=== PATIENT | female | born 1965 | race Caucasian/White ===

== ENCOUNTER 2017-02-06 16:16 | Emergency (ER) | payer OTHER ==
[2017-02-06 17:03] VITALS: BP 107/74
--- NOTE | 2017-02-06 19:20 | UC ---
Respiratory Complaint HPI - HPI Summary HPI Summary: Pt c/o URI like symptoms, cough, "burning chest" X 1 week. - History of Current Complaint Chief Complaint: UCRespiratory Stated Complaint: SORE THROAT/CHEST CONGESTION Time Seen by Provider: 02/06/17 18:23 Hx Obtained From: Patient ?: No Onset/Duration: Gradual Onset, Lasting Weeks - 1, Still Present Severity Initially: Mild Severity Currently: Mild Pain Intensity: 8 Pain Scale Used: 0-10 Numeric Character: Cough: Nonproductive Aggravating Factors: Deep Breaths, Recumbent Position Alleviating Factors: Nothing Associated Signs And Symptoms: Positive: Wheezing, URI - Risk Factors Pulmonary Embolism Risk Factors: Negative Cardiac Risk Factors: Negative Pseudomonas Risk Factors: Negative Tuberculosis Risk Factors: Negative - Allergies/Home Medications Allergies/Adverse Reactions: Allergies Allergy/AdvReac Type Severity Reaction Status Date / Time Latex Allergy Severe Rash Verified 02/06/17 17:03 Hydrocodone [From Vicodin] Allergy Intermediate Itching Verified 02/06/17 17:03 PMH/Surg Hx/FS Hx/Imm Hx Previously Healthy: Yes - Surgical History Surgical History: Yes Surgery Procedure, Year, and Place: L shoulder RC - Family History Known Family History: Positive: Cardiac Disease - Social History Occupation: Employed Full-time Lives: With Family Alcohol Use: Occasionally Substance Use Type: None Smoking Status (MU): Current Every Day Smoker Amount Used/How Often: ~ 1/2 ppd Length of Time of Smoking/Using Tobacco: started ~ age 20 Have You Smoked in the Last Year: Yes - Immunization History Most Recent Influenza Vaccination: this season [id number] Hx Tetanus, Diphtheria Vaccination: Yes Review of Systems Constitutional: Chills, Fatigue Skin: Negative Eyes: Negative ENT: Other - nasal congestion, PND Respiratory: Cough Cardiovascular: Negative Gastrointestinal: Negative Genitourinary: Negative Motor: Negative Neurovascular: Negative Musculoskeletal: Negative Neurological: Negative Psychological: Negative Is Patient Immunocompromised?: No All Other Systems Reviewed And Are Negative: Yes Physical Exam Triage Information Reviewed: Yes Appearance: Ill-Appearing Vital Signs: Initial Vital Signs Temp 99.6 F 02/06/17 16:59 Pulse 70 02/06/17 16:59 Resp 16 02/06/17 16:59 BP 107/74 02/06/17 16:59 Pulse Ox 100 02/06/17 16:59 Vital Signs Reviewed: Yes Eye Exam: Normal ENT Exam: Other ENT: Positive: Nasal congestion, Other: - PND Neck exam: Normal Respiratory Exam: Normal Respiratory: Positive: Rhonchi Cardiovascular Exam: Normal Musculoskeletal Exam: Normal Neurological Exam: Normal Psychological Exam: Normal Skin Exam: Normal UC Diagnostic Evaluation - Laboratory O2 Sat by Pulse Oximetry: 100 Respiratory Course/Dx - Differential Dx/Diagnosis Differential Diagnosis/HQI/PQRI: Sinusitis, Other - URI Provider Diagnoses: Bronchitis Discharge - Discharge Plan Condition: Stable Disposition: HOME Prescriptions: Amoxicillin PO (*) [Amoxicillin 500 MG CAP*] 500 mg PO Q12H #20 cap Benzonatate CAP* [Tessalon 100 MG CAP*] 100 mg PO TID PRN #21 cap PRN Reason: Cough Patient Education Materials: Acute Bronchitis (ED) Referrals: PARTHA Majano [Primary Care Provider] - If Needed
== END 2017-02-06 18:37 | disposition home or self-care (01) ==
LOC: UCCORT 16:16
DX: J40 Bronchitis, not specified as acute or chronic (principal); Z88.6 Allergy status to analgesic agent; Z91.040 Latex allergy status; Z72.0 Tobacco use
CPT/HCPCS: 99212; G0463

== ENCOUNTER 2017-04-14 12:53 | Emergency (ER) | payer OTHER ==
[2017-04-14 13:10] VITALS: BP 127/83
--- NOTE | 2017-04-14 14:12 | UC ---
Respiratory Complaint HPI - HPI Summary HPI Summary: c/o cough, nasal congestion, sinus pressure, malaise productive cough and sore throat X 6 days. - History of Current Complaint Chief Complaint: UCRespiratory Stated Complaint: COUGH,CONGESTION Time Seen by Provider: 04/14/17 13:36 Hx Obtained From: Patient ?: No Onset/Duration: Sudden Onset, Lasting Days - 6, Still Present, Worse Since - onset Timing: Constant Severity Initially: Mild Severity Currently: Moderate Pain Intensity: 7 Pain Scale Used: 0-10 Numeric Character: Cough: Productive - white Aggravating Factors: Exertion, Deep Breaths, Recumbent Position Alleviating Factors: Nothing Associated Signs And Symptoms: Positive: URI, Nasal Congestion, Sinus Discomfort - Risk Factors Pulmonary Embolism Risk Factors: Smoking Cardiac Risk Factors: Smoking Pseudomonas Risk Factors: Negative Tuberculosis Risk Factors: Smoking - Allergies/Home Medications Allergies/Adverse Reactions: Allergies Allergy/AdvReac Type Severity Reaction Status Date / Time Latex Allergy Severe Rash Verified 04/14/17 13:04 Hydrocodone [From Vicodin] Allergy Intermediate Itching Verified 04/14/17 13:04 PMH/Surg Hx/FS Hx/Imm Hx Previously Healthy: Yes - Surgical History Surgical History: Yes Surgery Procedure, Year, and Place: L shoulder RC - Family History Known Family History: Positive: Cardiac Disease - Social History Occupation: Employed Full-time Lives: With Family Alcohol Use: Occasionally Substance Use Type: None Smoking Status (MU): Light Every Day Tobacco Smoker Amount Used/How Often: ~ 1/2 ppd Length of Time of Smoking/Using Tobacco: started ~ age 20 Have You Smoked in the Last Year: Yes - Immunization History Most Recent Influenza Vaccination: not this season Hx Tetanus, Diphtheria Vaccination: Yes Review of Systems Constitutional: Chills, Fatigue Skin: Negative Eyes: Negative ENT: Sinus Congestion, Sinus Pain/Tenderness Respiratory: Shortness Of Breath, Cough Cardiovascular: Negative Gastrointestinal: Negative Genitourinary: Negative Motor: Negative Neurovascular: Negative Musculoskeletal: Negative Neurological: Headache Psychological: Negative Is Patient Immunocompromised?: No All Other Systems Reviewed And Are Negative: Yes Physical Exam Triage Information Reviewed: Yes Appearance: Ill-Appearing Vital Signs: Initial Vital Signs Temp 97.9 F 04/14/17 13:06 Pulse 79 04/14/17 13:06 Resp 20 04/14/17 13:06 BP 127/83 04/14/17 13:06 Pulse Ox 100 04/14/17 13:06 Vital Signs Reviewed: Yes Eye Exam: Normal ENT Exam: Other ENT: Positive: Nasal congestion, TM bulging, Sinus tenderness Dental Exam: Normal Neck exam: Normal Respiratory Exam: Other Respiratory: Positive: Wheezing Cardiovascular Exam: Normal Musculoskeletal Exam: Normal Neurological Exam: Normal Psychological Exam: Normal Skin Exam: Normal UC Diagnostic Evaluation - Laboratory O2 Sat by Pulse Oximetry: 100 Respiratory Course/Dx - Differential Dx/Diagnosis Differential Diagnosis/HQI/PQRI: Bronchitis, Sinusitis Provider Diagnoses: sinusitis. bronchitis Discharge - Discharge Plan Condition: Stable Disposition: HOME Prescriptions: Amoxicillin PO (*) [Amoxicillin 875 MG (*)] 875 mg PO Q12H #20 tab Benzonatate CAP* [Tessalon 100 MG CAP*] 100 mg PO Q8H PRN #30 cap PRN Reason: Cough Pseudoephedrine-Guaifenesin [Mucinex D 60-600 mg] 1 tab PO DAILY #10 tab Patient Education Materials: Sinusitis (ED) Referrals: PARTHA Majano [Primary Care Provider] - If Needed
== END 2017-04-14 13:50 | disposition home or self-care (01) ==
LOC: UCCORT 12:53
DX: J32.9 Chronic sinusitis, unspecified (principal); J40 Bronchitis, not specified as acute or chronic; Z88.5 Allergy status to narcotic agent; Z91.040 Latex allergy status; F17.210 Nicotine dependence, cigarettes, uncomplicated
CPT/HCPCS: 99212; G0463

== ENCOUNTER 2017-06-19 11:54 | Emergency (ER) | payer OTHER ==
[2017-06-19] MEDS ORDERED: Amoxicillin/Clavulanate TAB* 875 MG PO ONE (13:35)
[2017-06-19 13:37] VITALS: BP 131/87
--- NOTE | 2017-06-19 13:39 | ED ---
Throat Pain/Nasal Congestion - HPI Summary HPI Summary: 52 yr old female with the complaint of left sided dental pain, and left facial swelling. The patient had onset of this over the past couple of days. She has been having problems chewing on the left side due to dental pain. Pain is moderate. She has no fever, no headache, no eye pain. She does have swelling to the left maxilla. She has not had swelling or pain in her left eyelids or in her left eye on range of motion. - History of Current Complaint Time Seen by Provider: 06/19/17 13:26 - Allergies/Home Medications Allergies/Adverse Reactions: Allergies Allergy/AdvReac Type Severity Reaction Status Date / Time Latex Allergy Severe Rash Verified 06/19/17 13:19 Hydrocodone [From Vicodin] Allergy Intermediate Itching Verified 06/19/17 13:19 PMH/Surg Hx/FS Hx/Imm Hx Endocrine/Hematology History: Denies: Hx Diabetes, Hx Thyroid Disease Cardiovascular History: Denies: Hx Hypertension Respiratory History: Denies: Hx Asthma, Hx Chronic Obstructive Pulmonary Disease (COPD) GI History: Denies: Hx Ulcer - Surgical History Surgery Procedure, Year, and Place: L shoulder RC Infectious Disease History: Denies: Hx Clostridium Difficile, Hx Hepatitis, Hx Human Immunodeficiency Virus (HIV), Hx of Known/Suspected MRSA, Hx Shingles, Hx Tuberculosis, Hx Known/ Suspected VRE, Hx Known/Suspected VRSA, History Other Infectious Disease, Traveled Outside the in Last 30 Days - N - Family History Known Family History: Positive: Cardiac Disease - Social History Alcohol Use: Occasionally Substance Use Type: Reports: None Smoking Status (MU): Light Every Day Tobacco Smoker Amount Used/How Often: ~ 1/2 ppd Length of Time of Smoking/Using Tobacco: started ~ age 20 Have You Smoked in the Last Year: Yes Review of Systems Constitutional: Negative Positive: Dental Pain, Other - left maxillary facial swelling All Other Systems Reviewed And Are Negative: Yes Physical Exam Triage Information Reviewed: Yes Vital Signs Reviewed: Yes Appearance: Positive: Well-Appearing, No Pain Distress Skin: Positive: Warm, Skin Color Reflects Adequate Perfusion Eyes: Positive: EOMI, ARMANDO, Conjunctiva Clear, Other: - eyelids normal and EOMI without any pain on range of motion.. Negative: Discharge ENT: Positive: TMs normal, Other - There is mild left side facial swelling with some tenderness over the left maxillary area.. Negative: Pharyngeal erythema, Nasal congestion, Nasal drainage, Trismus, Muffled voice, Hoarse voice Dental: Positive: Gross Decay/Caries @ - teeth 12,13 and 15 with gingival cellulitis and tenderness on palpation. Neck: Positive: Supple, Nontender. Negative: Nuchal Rigidity Respiratory/Lung Sounds: Positive: Clear to Auscultation, Breath Sounds Present Cardiovascular: Positive: RRR. Negative: Murmur Musculoskeletal: Positive: Strength/ROM Intact Neurological: Positive: Sensory/Motor Intact, Alert, Oriented to Person Place, Time, CN Intact II-III, Normal Gait, Speech Normal Psychiatric: Positive: Normal - [place] Coma Scale Best Eye Response: 4 - Spontaneous Best Motor Response: 6 - Obeys Commands Best Verbal Response: 5 - Oriented Coma Scale Total: 15 EENT Course/Dx - Course Assessment/Plan: 52 yr old female with dental infection, gingival cellulitis and right maxillary facial swelling without any involvement at all of the left orbit at this time. Plan Augmentin. Follow up with dental and her PMD. IF worsens go to the ER. - Diagnoses Provider Diagnoses: Infected dental caries Discharge - Discharge Plan Condition: Good Disposition: HOME Prescriptions: Amoxicillin/Clavulanate TAB* [Augmentin TAB 875*] 875 mg PO BID #20 tab Patient Education Materials: Dental Abscess (ED), Toothache (ED) Referrals: PARTHA Majano [Primary Care Provider] -
== END 2017-06-19 14:07 | disposition home or self-care (01) ==
LOC: UCCORT 11:54
DX: K02.9 Dental caries, unspecified (principal); Z91.040 Latex allergy status; F17.210 Nicotine dependence, cigarettes, uncomplicated; Z88.5 Allergy status to narcotic agent
CPT/HCPCS: 99212; A9270-GY; G0463

== ENCOUNTER 2017-09-21 16:34 | Emergency (ER) | payer OTHER ==
[2017-09-21 17:46] VITALS: BP 108/70
--- NOTE | 2017-09-21 17:51 | UC ---
Dental HPI - HPI Summary HPI Summary: 52 yo F with R upper dental pain and facial pain and redness x 2 days, worsening today. Pt with hx prior dental pain and swelling and infections, s/p right 2nd molar extraction. Pt denies fever, chest pain, SOB, N, V. No hx cardiac murmur. States she gets a rash with hydrocodone, so uses ibuprofen only for pain. Has been treated with penicillin for dental infections in the past. Goes to [facility], but was not able to get an appt with them before the redness and swelling of her face began today, due to her work schedule. States she will go to them as soon as the infection settles down. - History of Current Complaint Chief Complaint: UCGeneralIllness Stated Complaint: FACIAL SWELLING Time Seen by Provider: 09/21/17 17:50 Hx Obtained From: Patient Hx Last Menstrual Period: 2010 Onset/Duration: Gradual Onset, Lasting Days, Worse Since - today Severity: Moderate Pain Intensity: 5 Pain Scale Used: 0-10 Numeric Aggravating Factor(s): Chewing Alleviating Factor(s): Nothing Related History: Previous Dental Care on Same Tooth, Swelling, Other - facial redness - Allergies/Home Medications Allergies/Adverse Reactions: Allergies Allergy/AdvReac Type Severity Reaction Status Date / Time hydrocodone Allergy Intermediate Itching Verified 09/21/17 17:46 latex Allergy Intermediate Rash Verified 09/21/17 17:46 PMH/Surg Hx/FS Hx/Imm Hx Previously Healthy: Yes - Surgical History Surgical History: Yes Surgery Procedure, Year, and Place: L shoulder RC. wrist - Family History Known Family History: Positive: Cardiac Disease - father, Hypertension - mother - Social History Occupation: Employed Full-time Alcohol Use: Occasionally Substance Use Type: None Smoking Status (MU): Light Every Day Tobacco Smoker Amount Used/How Often: ~ 1/2 ppd Length of Time of Smoking/Using Tobacco: started ~ age 20 Have You Smoked in the Last Year: Yes - Immunization History Most Recent Influenza Vaccination: not this season Hx Tetanus, Diphtheria Vaccination: Yes Review of Systems Constitutional: Negative Skin: Rash - right facial redness Eyes: Negative ENT: Dental Pain - right upper, rear Cardiovascular: Negative Gastrointestinal: Negative Motor: Negative Neurovascular: Negative Musculoskeletal: Negative Neurological: Negative Psychological: Negative Is Patient Immunocompromised?: No All Other Systems Reviewed And Are Negative: Yes Physical Exam Triage Information Reviewed: Yes Appearance: Well-Nourished, Ill-Appearing - mild, Pain Distress - mod Vital Signs: Initial Vital Signs Temp 98.3 F 09/21/17 17:40 Pulse 69 09/21/17 17:40 Resp 17 09/21/17 17:40 BP 108/70 09/21/17 17:40 Pulse Ox 99 09/21/17 17:40 Vital Signs Reviewed: Yes Eyes: Positive: Conjunctiva Clear ENT: Positive: Hearing grossly normal, Pharynx normal Dental: Positive: Percussion Tenderness @ - right upper premolar, Gross Decay/ Caries @ - throughout, Cellulitis @ - right upper premolar, Other: - facial redness right cheek. Negative: Dental Fracture @, Cervical Lymphadenopathy Neck exam: Normal Neck: Positive: Supple, Nontender, No Lymphadenopathy Respiratory: Positive: Lungs clear, Normal breath sounds, No respiratory distress, No accessory muscle use Cardiovascular: Positive: RRR, No Murmur, Pulses Normal, Brisk Capillary Refill Musculoskeletal: Positive: Strength Intact, ROM Intact Neurological: Positive: Alert, Muscle Tone Normal Psychological Exam: Normal Skin: Positive: rashes - 3 cm redness right cheek, minimal swelling, no hives, no red streaks Dental Complaint Course/Dx - Course Course Of Treatment: pt with dental pain, facial redness and swelling. Will treat with Amoxicillin and ibuprofen for pain and advise definite dental follow up. - Differential Dx/Diagnosis Differential Diagnosis/Dx: Dental Abscess, Dental Caries, Odontogenic Pain, Peridontic Disease Provider Diagnoses: dental abscess. facial swelling Discharge - Sign-Out/Discharge Documenting (check all that apply): Discharge/Admit/Transfer - home - Discharge Plan Condition: Stable Disposition: HOME Prescriptions: Amoxicillin PO (*) [Amoxicillin 875 MG (*)] 875 mg PO BID #20 tab Ibuprofen TAB* [Motrin TAB* 800 MG] 800 mg PO Q6H #30 tab Patient Education Materials: Dental Abscess (ED) Forms: *Work Release Referrals: PARTHA Majano [Primary Care Provider] - 2 Days Additional Instructions: Follow up with your dentist, Riky Atkinson, [place]. Return to urgent care if you have new or worsening symptoms. - Billing Disposition and Condition Condition: STABLE Disposition: HOME
== END 2017-09-21 18:06 | disposition home or self-care (01) ==
LOC: UCCORT 16:34
DX: K04.7 Periapical abscess without sinus (principal); R22.0 Localized swelling, mass and lump, head; Z88.5 Allergy status to narcotic agent; F17.210 Nicotine dependence, cigarettes, uncomplicated
CPT/HCPCS: 99212; G0463

== ENCOUNTER 2018-04-02 11:39 | Emergency (ER) | payer OTHER ==
[2018-04-02 12:04] VITALS: BP 109/74
--- NOTE | 2018-04-02 12:53 | UC ---
Respiratory Complaint HPI - HPI Summary HPI Summary: 52 year old female presents with 2 week history of nasal congestion, nasal drainage, and sinus congestion. Over past week she has also developed a productive cough for yellow sputum. Denies fever, chills, ear pain, sore throat , chest pain, shortness of breath, wheezing, abdominal pain, nausea, vomiting, or diarrhea. 1/2 PPD smoker. - History of Current Complaint Chief Complaint: UCRespiratory Stated Complaint: COUGH,CONGESTION Time Seen by Provider: 04/02/18 12:12 Hx Obtained From: Patient Hx Last Menstrual Period: 2010 Onset/Duration: Gradual Onset, Lasting Weeks - 2 Severity Initially: Mild Severity Currently: Mild Pain Intensity: 2 Character: Cough: Productive, Sputum Description: - yellow Aggravating Factors: Recumbent Position Alleviating Factors: Nothing Associated Signs And Symptoms: Positive: URI, Nasal Congestion. Negative: Dyspnea, Fever, Chills, Pleuritic Chest Pain, Wheezing, Hemoptysis, Dizziness - Allergies/Home Medications Allergies/Adverse Reactions: Allergies Allergy/AdvReac Type Severity Reaction Status Date / Time hydrocodone Allergy Intermediate Itching Verified 04/02/18 12:01 latex Allergy Intermediate Rash Verified 04/02/18 12:01 Home Medications: Home Medications Ibuprofen TAB* [Advil TAB*] 400 mg PO Q6H PRN 04/02/18 [History Confirmed ] PMH/Surg Hx/FS Hx/Imm Hx Previously Healthy: Yes - Denies significant PMH - Surgical History Surgical History: Yes Surgery Procedure, Year, and Place: Right Rotator Cuff, 2007, [place]; Bilateral Carpal Tunnel, ~, [place] - Family History Known Family History: Positive: Cardiac Disease - father, Hypertension - mother - Social History Occupation: Employed Full-time Alcohol Use: Occasionally Substance Use Type: None Smoking Status (MU): Heavy Every Day Tobacco Smoker Amount Used/How Often: ~1/2 PPD Length of Time of Smoking/Using Tobacco: Since Age 20 Have You Smoked in the Last Year: Yes Household Exposure Type: Cigarettes - Immunization History Most Recent Influenza Vaccination: not this season Hx Tetanus, Diphtheria Vaccination: Yes Review of Systems All Other Systems Reviewed And Are Negative: Yes Constitutional: Positive: Negative Skin: Positive: Negative Eyes: Positive: Negative ENT: Positive: Nasal Discharge, Sinus Congestion Respiratory: Positive: Cough Cardiovascular: Positive: Negative Gastrointestinal: Positive: Negative Is Patient Immunocompromised?: No Physical Exam Triage Information Reviewed: Yes Appearance: Well-Appearing, No Pain Distress, Well-Nourished Vital Signs: Initial Vital Signs Temp 98.5 F 04/02/18 12:00 Pulse 76 04/02/18 12:00 Resp 16 04/02/18 12:00 BP 109/74 04/02/18 12:00 Pulse Ox 99 04/02/18 12:00 Eyes: Positive: Conjunctiva Clear. Negative: Discharge ENT: Positive: Hearing grossly normal, Pharyngeal erythema - Mild with cobblestoning, Nasal congestion, TMs normal, Uvula midline. Negative: Nasal drainage, Tonsillar swelling, Tonsillar exudate, Trismus, Sinus tenderness Neck: Positive: Supple, Nontender, No Lymphadenopathy Respiratory: Positive: No respiratory distress, Wheezing - Mild wheezing throught right lung ricardo Cardiovascular: Positive: RRR, No Murmur Neurological: Positive: Alert Skin Exam: Normal UC Diagnostic Evaluation - Laboratory O2 Sat by Pulse Oximetry: 99 Respiratory Course/Dx - Course Course Of Treatment: 52 year old female with 2 week history of URI symptoms and development of productive cough over past week. Afebrile. Exam unremarkable except for nasal congestion, mild pharyngeal erythema with cobblestoning, and mild wheezing on the right side. Considering duration of symptoms and her smoking history will treat with course of azithromycin. Recommend symptomatic treatment and follow up with PCP in 7 days if symptoms persist. Warning symptoms reviewed. Verbalizes understanding and agrees with POC. - Differential Dx/Diagnosis Differential Diagnosis/HQI/PQRI: Bronchitis, Lower Resp Infection, Sinusitis Provider Diagnoses: Acute bronchtits, wheezing Discharge - Sign-Out/Discharge Documenting (check all that apply): Patient Departure All imaging exams completed and their final reports reviewed: No Studies - Discharge Plan Condition: Stable Disposition: HOME Prescriptions: Albuterol HFA INHALER* [Ventolin HFA Inhaler*] 2 puff INH Q4H PRN #1 mdi PRN Reason: Sob/Wheezing Azithromyxin ADRIÁN (NF) [Z-Adrián (Zithromax) 250 mg tabs #6] 2 tab PO .TODAY, THEN 1 DAILY #6 tab Patient Education Materials: How to Use a Metered-Dose Inhaler (ED), Acute Bronchitis (ED), Wheezing (ED) Referrals: Borja,Ellijah B, [employer] [Primary Care Provider] - 7 Days (If symptoms persist.) Additional Instructions: Start azithromycin 2 tabs today then 1 tab a day for next 4 days. I would recommend using a saline rinse kit such as Neti Pot or NeilMed at least twice a day to help thin secretions and promote drainage. An over the counter steroid nasal spray such as Flonase, Nasocort, or Nasonex is also often beneficial to help with the nasal congestion. Use albuterol inhaler 2 puffs every 4-6 hours as needed for shortness of breath , wheezing, or coughing fits. Follow up with your primary care provider in 7 days if symptoms persist. Seek immediate medical attention in the emergency room if you develop fever greater than 100.5 F, have chest pain, shortness of breath, or any worsening of symptoms. - Billing Disposition and Condition Condition: STABLE Disposition: Home
== END 2018-04-02 12:59 | disposition home or self-care (01) ==
LOC: UCCORT 11:39
DX: J20.9 Acute bronchitis, unspecified (principal); R06.2 Wheezing; Z88.5 Allergy status to narcotic agent; F17.210 Nicotine dependence, cigarettes, uncomplicated
CPT/HCPCS: 99212; G0463